=== PATIENT | male | born 1975 | race Hispanic/Latino ===

== ENCOUNTER 2018-07-14 13:43 | Emergency (ER) | payer BC, OTHER ==
[2018-07-14] MEDS ORDERED: NITROGLYCERIN 0.4 MG/TAB SL ONE (14:31)
[2018-07-14] MEDS ORDERED: ASPIRIN 81 MG CHEWABLE TABLET ONE (14:31)
[2018-07-14 14:32] LABS: Urine Blood NEGATIVE (NEG); Urine Glucose NEGATIVE (NEG); Urine Protein NEGATIVE (NEG)
[2018-07-14 14:39] LABS: Absolute Lymphocytes (CBC) 3.7 K/uL (0.7-4.9); Absolute Monocytes 0.9 K/uL (0.1-1.3); Basophils % 1.3 % (0-1.3); Eosinophils % 4.3 % (0-4.4); Hematocrit 44.5 % (39.6-49.0); Lymphocytes % 36.4 % (15.3-44.8); MCH 31.2 pg (27.0-35.0); MCV 89.1 fL (80-100); MPV 8.4 fL (7.6-11.3); Monocytes % 8.9 % (3.3-12.3)
[2018-07-14 14:51] LABS: Protime INR 0.98
[2018-07-14 15:07] LABS: ALT/SGPT 94 U/L (12-78); AST/SGOT 41 U/L (15-37); Alkaline Phosphatase 58 U/L (45-117); BUN Blood Urea Nitrogen 20 mg/dL (7-18); Bicarbonate 28 mmol/L (21-32); Bilirubin Direct 0.2 mg/dL (0-0.2); Glucose Level 117 mg/dL (74-106); Magnesium 2.4 mg/dL (1.8-2.4); NT PRO-BNP 7 pg/mL (<125); Protein, Total 7.8 g/dL (6.4-8.2); Sodium Level 139 mmol/L (136-145); Troponin (Emerg Dept Use Only) < 0.02 ng/mL (0.0-0.045)
--- NOTE | 2018-07-14 15:10 | RAD REPORT ---
EXAM DESCRIPTION: Daniel Single View07/14/2018 2:45 pm CLINICAL HISTORY: Chest pain COMPARISON: none FINDINGS: The lungs appear clear of acute infiltrate. The heart is normal size IMPRESSION: No acute abnormalities displayed
--- NOTE | 2018-07-14 15:13 | EKG ---
Test Date: 2018-07-14 Test Time: 14:17:15 Lion Trainer: AZRA MEASUREMENT RESULTS: Intervals: Rate: 63 TN: 192 QRSD: 106 QT: 394 QTc: 403 [place]: P: 20 TN: 192 QRS: -16 T: 24 INTERPRETIVE STATEMENTS: Normal sinus rhythm Nonspecific T wave abnormality Abnormal ECG No previous ECG available for comparison Electronically Signed On 07-14-18 15:12:47 CDT by Enrrique Raygoza
--- NOTE | 2018-07-14 16:50 | EDPHYS ---
Physician Documentation [facility] Name: Kedar Lazo Age: 43 yrs Sex: Male : 1975 Arrival Date: 07/14/2018 Time: 13:48 Bed 13 Private MD: None, None ED Physician Dheeraj Andrade HPI: 07/14 16:54 This 43 yrs old Male presents to ER via Ambulatory with complaints of Chest jr8 Pain. 16:54 The patient or guardian reports chest pain that is located primarily in the anterior jr8 chest wall, left. Onset: acutely, today. The pain does not radiate. Associated signs and symptoms: The patient has no apparent associated signs or symptoms. The chest pain is described as stabbing. Duration: The patient or guardian reports multiple episodes, that are intermittent, that wax and wane. Modifying factors: The symptoms are alleviated by nothing. the symptoms are aggravated by nothing. Severity of pain: At its worst the pain was moderate in the emergency department the pain has improved. The patient has experienced similar episodes in the past, several times. The patient has not recently seen a physician. Stated that he has had this pain before but not as long as today. Exertion does not exacerbate or cause the pain . Historical: - Allergies: 13:54 No Known Allergies; hj - Home Meds: 13:54 lisinopril 30 mg Oral tab 1 tab once daily [Active]; hj - PMHx: 13:54 Hypertension; hj - PSHx: 13:54 None; hj - Immunization history:: Adult Immunizations up to date. - Social history:: Smoking status: Patient/guardian denies using tobacco, Patient uses alcohol, occasionally. - Ebola Screening: : Patient negative for fever greater than or equal to 101.5 degrees Fahrenheit, and additional compatible Ebola Virus Disease symptoms Patient denies exposure to infectious person Patient denies travel to an Ebola-affected area in the 21 days before illness onset. ROS: 16:54 Eyes: Negative for injury, pain, redness, and discharge, ENT: Negative for injury, jr8 pain, and discharge, Neck: Negative for injury, pain, and swelling, Respiratory: Negative for shortness of breath, cough, wheezing, and pleuritic chest pain, Abdomen/GI: Negative for abdominal pain, nausea, vomiting, diarrhea, and constipation, Back: Negative for injury and pain, MS/Extremity: Negative for injury and deformity, Skin: Negative for injury, rash, and discoloration, Neuro: Negative for headache, weakness, numbness, tingling, and seizure. 16:54 Cardiovascular: Positive for chest pain, Negative for edema, orthopnea, palpitations, paroxysmal nocturnal dyspnea. Exam: 16:54 Eyes: Pupils equal round and reactive to light, extra-ocular motions intact. Lids and jr8 lashes normal. Conjunctiva and sclera are non-icteric and not injected. Cornea within normal limits. Periorbital areas with no swelling, redness, or edema. ENT: Nares patent. No nasal discharge, no septal abnormalities noted. Tympanic membranes are normal and external auditory canals are clear. Oropharynx with no redness, swelling, or masses, exudates, or evidence of obstruction, uvula midline. Mucous membranes moist. Neck: Trachea midline, no thyromegaly or masses palpated, and no cervical lymphadenopathy. Supple, full range of motion without nuchal rigidity, or vertebral point tenderness. No Meningismus. Chest/axilla: Normal chest wall appearance and motion. Nontender with no deformity. No lesions are appreciated. Cardiovascular: Regular rate and rhythm with a normal S1 and S2. No gallops, murmurs, or rubs. Normal PMI, no JVD. No pulse deficits. Respiratory: Lungs have equal breath sounds bilaterally, clear to auscultation and percussion. No rales, rhonchi or wheezes noted. No increased work of breathing, no retractions or nasal flaring. Abdomen/GI: Soft, non-tender, with normal bowel sounds. No distension or tympany. No guarding or rebound. No evidence of tenderness throughout. Back: No spinal tenderness. No costovertebral tenderness. Full range of motion. Skin: Warm, dry with normal turgor. Normal color with no rashes, no lesions, and no evidence of cellulitis. MS/ Extremity: Pulses equal, no cyanosis. Neurovascular intact. Full, normal range of motion. Neuro: Awake and alert, GCS 15, oriented to person, place, time, and situation. Cranial nerves II-XII grossly intact. Motor strength 5/5 in all extremities. Sensory grossly intact. Cerebellar exam normal. Normal gait. Vital Signs: 13:55 BP 138 / 86; Pulse 69; Resp 18; Temp 98.0(TE); Pulse Ox 100% on R/A; Weight 127.01 kg; hj Height 5 ft. 11 in. (180.34 cm); Pain 6/10; 15:10 BP 124 / 79; Pulse 66; Resp 18; Pulse Ox 96% ; mh5 16:05 BP 126 / 81; Pulse 69; Resp 15; Pulse Ox 100% ; bp 17:00 BP 133 / 83; Pulse 69; Resp 18; Pulse Ox 97% ; bp 13:55 Body Mass Index 39.05 (127.01 kg, 180.34 cm) hj MDM: 13:58 Patient medically screened. jr8 14:20 HEART Score: History: Moderately Suspicious (1), ECG: Normal (0), Age: < or = 45 years jr8 (0), Risk Factors: 1 or 2 risk factors (1), [Hypertension] [+ Family HX] Troponin: < or = 1 x Normal Limit (0). The patient was given aspirin in the Emergency Department. 16:47 Data reviewed: vital signs, nurses notes, lab test result(s), EKG, radiologic studies, jr8 plain films, and as a result, I will discharge patient. Data interpreted: Pulse oximetry: on room air is 100 %. Interpretation: normal. Counseling: I had a detailed discussion with the patient and/or guardian regarding: the historical points, exam findings, and any diagnostic results supporting the discharge/admit diagnosis, lab results, radiology results, the need for outpatient follow up, a systems integration manager, to return to the emergency department if symptoms worsen or persist or if there are any questions or concerns that arise at home. ED course: Patient currently without any chest pain. Hemodynamically stable. 2 sets of troponin's, both negative. Will f/u with cardiology in next 24 hours. If worse will come back for further evaluation . 07/14 14:13 Order name: Urine Dipstick--Ancillary (enter results); Complete Time: 14:40 bd 07/14 14:17 Order name: Basic Metabolic Panel; Complete Time: 15:08 jr8 07/14 14:17 Order name: CBC with Diff; Complete Time: 14:59 jr8 07/14 14:17 Order name: LFT's; Complete Time: 15:08 jr8 07/14 14:17 Order name: Magnesium; Complete Time: 15:08 jr8 07/14 14:17 Order name: NT PRO-BNP; Complete Time: 15:08 8 07/14 14:17 Order name: PT-INR; Complete Time: 14:59 07/14 14:17 Order name: Troponin (emerg Dept Use Only); Complete Time: 15:08 8 07/14 14:17 Order name: XRAY Chest (1 view); Complete Time: 15:11 07/14 14:17 Order name: EKG; Complete Time: 14:17 8 07/14 14:17 Order name: Cardiac monitoring; Complete Time: 14:21 jr8 07/14 16:00 Order name: Troponin I; Complete Time: 16:47 bp 07/14 14:17 Order name: EKG - Nurse/Tech; Complete Time: 14:22 8 07/14 14:17 Order name: IV Saline Lock; Complete Time: 14:22 8 07/14 14:17 Order name: Labs collected and sent; Complete Time: 15:20 07/14 14:17 Order name: O2 Per Protocol; Complete Time: 14:07/14 14:17 Order name: O2 Sat Monitoring; Complete Time: 14:21 Administered Medications: 14:29 Drug: Aspirin Chewable Tablet 324 mg Route: PO; bp 15:21 Follow up: Response: No adverse reaction bp 14:29 Drug: Nitroglycerin 0.4 mg Route: Sublingual; bp 15:20 Follow up: Response: Pain is decreased bp Disposition: 07/15 07:06 Co-signature as Attending Physician, Dheeraj Andrade MD I agree with the assessment and [facility] plan of care. Disposition: 07/14/18 16:49 Discharged to Home. Impression: Chest pain, unspecified. - Condition is Stable. - Discharge Instructions: Nonspecific Chest Pain, Chest Pain Observation. - Medication Reconciliation Form, Thank You Letter, Antibiotic Education, Prescription Opioid Use form. - Follow up: Enrrique Raygoza MD; When: 1 - 2 days; Reason: Recheck today's complaints, Continuance of care, Re-evaluation by your physician. - Problem is new. - Symptoms are resolved. Signatures: Dispatcher [employer] Dheeraj Patel MD MD cha Roszak, Josh, PA PA jr8 Trung, Calos, RN RN hj Damon, Dixon, RN RN bp Corrections: (The following items were deleted from the chart) 07/14 16:55 16:54 Stated that he has had this pain before but not as long as today . jr8 jr8 17:09 16:49 07/14/2018 16:49 Discharged to Home. Impression: Chest pain, unspecified. bp Condition is Stable. Forms are Medication Reconciliation Form, Thank You Letter, Antibiotic Education, Prescription Opioid Use. Follow up: Enrrique Raygoza; When: 1 - 2 days; Reason: Recheck today's complaints, Continuance of care, Re-evaluation by your physician. Problem is new. Symptoms are resolved. jr8
--- NOTE | 2018-07-14 16:50 | ER ---
Nurse's Notes [facility] Name: Kedar Lazo Age: 43 yrs Sex: Male : 1975 Arrival Date: 07/14/2018 Time: 13:48 Bed 13 Private MD: None, None Diagnosis: Chest pain, unspecified Presentation: 07/14 13:52 Presenting complaint: Patient states: i have this chest pain that started 6 am today, hj like something is poking me on my chest, like sharp pain, non radiating; denies nausea and vomiting; denies SOB; pain is 6/10;. Transition of care: patient was not received from another setting of care. Onset of symptoms was July 14, 2018. Risk Assessment: Do you want to hurt yourself or someone else? Patient reports no desire to harm self or others. Initial Sepsis Screen: Does the patient meet any 2 criteria? No. Patient's initial sepsis screen is negative. Does the patient have a suspected source of infection? No. Patient's initial sepsis screen is negative. Care prior to arrival: None. 13:52 Method Of Arrival: Ambulatory 13:52 Acuity: ELAINE 3 hj Triage Assessment: 13:55 General: Appears in no apparent distress. uncomfortable, Behavior is calm, cooperative, hj appropriate for age. Pain: Complains of pain in chest. Cardiovascular: Capillary refill < 3 seconds Patient's skin is warm and dry. Historical: - Allergies: 13:54 No Known Allergies; hj - Home Meds: 13:54 lisinopril 30 mg Oral tab 1 tab once daily [Active]; hj - PMHx: 13:54 Hypertension; hj - PSHx: 13:54 None; hj - Immunization history:: Adult Immunizations up to date. - Social history:: Smoking status: Patient/guardian denies using tobacco, Patient uses alcohol, occasionally. - Ebola Screening: : Patient negative for fever greater than or equal to 101.5 degrees Fahrenheit, and additional compatible Ebola Virus Disease symptoms Patient denies exposure to infectious person Patient denies travel to an Ebola-affected area in the 21 days before illness onset. Screenin:55 Abuse screen: Denies threats or abuse. Denies injuries from another. Nutritional hj screening: No deficits noted. Tuberculosis screening: No symptoms or risk factors identified. Fall Risk None identified. Assessment: 13:55 Pain: Pain does not radiate. Pain began 6 am today. hj 14:00 General: Appears in no apparent distress. comfortable, Behavior is calm, cooperative, bp appropriate for age. Pain: Complains of pain in chest. Neuro: Level of Consciousness is awake, alert, obeys commands, Oriented to person, place, time, situation, Appropriate for age. Cardiovascular: Rhythm is sinus rhythm. Respiratory: Airway is patent Respiratory effort is even, unlabored, Respiratory pattern is regular, symmetrical. GI: No signs and/or symptoms were reported involving the gastrointestinal system. : No signs and/or symptoms were reported regarding the genitourinary system. EENT: No deficits noted. Derm: No deficits noted. Skin is intact, is healthy with good turgor, Skin is pink, warm \T\ dry. Musculoskeletal: Circulation, motion, and sensation intact. Range of motion: intact in all extremities. 16:00 Reassessment: VS STABLE ON MONITOR, REPEAT TROPONIN PENDING. bp 17:06 Reassessment: PT D/C HOME AMBULATORY WITH FAMILY, DX WITH UNSPECIFIED CHEST PAIN. bp Vital Signs: 13:55 BP 138 / 86; Pulse 69; Resp 18; Temp 98.0(TE); Pulse Ox 100% on R/A; Weight 127.01 kg; hj Height 5 ft. 11 in. (180.34 cm); Pain 6/10; 15:10 BP 124 / 79; Pulse 66; Resp 18; Pulse Ox 96% ; mh5 16:05 BP 126 / 81; Pulse 69; Resp 15; Pulse Ox 100% ; bp 17:00 BP 133 / 83; Pulse 69; Resp 18; Pulse Ox 97% ; bp 13:55 Body Mass Index 39.05 (127.01 kg, 180.34 cm) ED Course: 13:48 Patient arrived in ED. mr 13:48 None, None is Private Physician. mr 13:54 Triage completed. hj 13:55 Arm band placed on left wrist. hj 13:55 Patient has correct armband on for positive identification. Placed in gown. Bed in low hj position. Call light in reach. Side rails up X 1. Adult w/ patient. forest manager on. Pulse ox on. NIBP on. 13:55 Patient maintains SpO2 saturation greater than 95% on room air. hj 13:58 Amado Archuleta PA is PHCP. jr8 13:58 Dheeraj Andrade MD is Attending Physician. jr8 13:59 Dixon Jose, RN is Primary Nurse. bp 14:20 Urine collected: clean catch specimen, clear. [facility] 14:20 Inserted saline lock: 20 gauge in right antecubital area, using aseptic technique. bp Blood collected. 14:21 Urine Dipstick--Ancillary (enter results) Sent. [facility] 14:25 EKG done, by biomed tech. reviewed by Amado ARANA. [facility] 14:39 X-ray completed. Portable x-ray completed in exam room. Patient tolerated procedure ka well. 14:42 XRAY Chest (1 view) In Process Unspecified. EDNV 16:49 Enrrique Raygoza MD is Referral Physician. [facility] 17:08 No provider procedures requiring assistance completed. IV discontinued, intact, bp bleeding controlled, No redness/swelling at site. Pressure dressing applied. Administered Medications: 14:29 Drug: Aspirin Chewable Tablet 324 mg Route: PO; bp 15:21 Follow up: Response: No adverse reaction bp 14:29 Drug: Nitroglycerin 0.4 mg Route: Sublingual; bp 15:20 Follow up: Response: Pain is decreased bp Outcome: 16:49 Discharge ordered by MD. jr8 17:08 Discharged to home ambulatory, with family. bp 17:08 Condition: stable 17:08 Discharge instructions given to patient, Instructed on discharge instructions, follow up and referral plans. Demonstrated understanding of instructions, follow-up care. 17:09 Patient left the ED. bp Signatures: Dispatcher [employer] EDNV Chasidy Tavares Amado Archuleta PA PA [facility] Calos Nino, RN RN Ruba Rose [facility] Dixon Jose, RN RN bp Emily Fisher 3 Corrections: (The following items were deleted from the chart) 13:58 13:55 Pulse 69bpm; Resp 18bpm; Pulse Ox 100% RA; Temp 98.0F Temporal; 127.01 kg; Height hj 5 ft. 11 in.; BMI: 39.0; Pain 6/10; hj
== END 2018-07-14 17:09 | disposition home or self-care (01) ==
LOC: ER 13:43
DX: R07.9 Chest pain, unspecified (principal); I10 Essential (primary) hypertension
CPT/HCPCS: 36415; 71045; 80048; 80076; 81003; 83735; 83880; 84484; 85025; 85610; 93005; 99285